=== PATIENT | female | born 1965 | race Caucasian/White ===

== ENCOUNTER 2017-02-02 08:13 | Day surgery (SDC) | payer BC ==
[~2017-02-02 08:13] MED LIST: Lactated Ringers 1,000 ML IV SCH; Lidocaine 2% 5 ML SDV ONE; Midazolam 1 MG/ML 2 ML SDV ONE; Propofol 200 MG/20 ML SDV ONE; Sodium Chloride 0.9% 10 ML Syringe FLUSH PRN; Sodium Chloride 0.9% 2.5 ML Syringe FLUSH PRN; fentaNYL 100 MCG/2 ML SDV ONE
--- NOTE | 2017-02-02 08:43 | PCM.PREANE ---
Preanesthetic Assessment - Anesthesia/Transfusion/Family Hx Anesthesia History: No Prior Anesthesia Transfusion History: No Prior Transfusion(s) - Physical Assessment O2 Sat by Pulse Oximetry: 98 Respiratory Rate: 15 Vital Signs: Last Vital Signs Temp 36.6 C 02/02/17 08:33 Pulse 56 L 02/02/17 08:33 Resp 15 02/02/17 08:33 BP 125/70 02/02/17 08:33 Pulse Ox 98 02/02/17 08:33 Height: 1.7 m Weight: 100.244 kg - Allergies Allergies/Adverse Reactions: Allergies Allergy/AdvReac Type Severity Reaction Status Date / Time acetaminophen Allergy Nausea and Verified 01/30/17 14:14 [From Darvocet-N] Vomiting propoxyphene Allergy Nausea and Verified 01/30/17 14:14 [From Darvocet-N] Vomiting PreAnesthesia Questionnaire Respiratory History: Reports: Sleep apnea Other Respiratory History: uses CPAP Gastrointestinal History: Reports: Irritable bowel syndrome, Other (see below) ( h/o GERD) [employer] History: Reports: Neurological History: Reports: Concussion Other Neuro History: hx skull fx Psychiatric History: Reports: Other (see below) (h/o anxiety/depression) Endocrine/Metabolic History: Reports: Obesity/BMI 30+ Dermatologic History: Reports: Eczema - Past Surgical History Head Surgeries/Procedures: Reports: None - SUBSTANCE USE Smoking Status *Q: Never Smoker Recreational Drug Use History: No - HOME MEDS Home Medications: Home Meds . [No Known Home Meds] 01/30/17 [History] - CURRENT (IN HOUSE) MEDS Current Meds: Current Medications Lactated Ringer's (Ringers, Lactated) 1,000 mls @ 125 mls/hr IV ASDIRECTED HORACIO Sodium Chloride (Saline Flush) 10 ml FLUSH ASDIRECTED PRN PRN Reason: Keep Vein Open Sodium Chloride (Saline Flush) 2.5 ml FLUSH ASDIRECTED PRN PRN Reason: Keep Vein Open Discontinued Medications Fentanyl (Sublimaze) Confirm Administered Dose 100 mcg .ROUTE .STK-MED ONE Stop: 02/02/17 08:06 Lidocaine (Xylocaine-Mpf 2%) Confirm Administered Dose 5 ml .ROUTE .STK-MED ONE Stop: 02/02/17 08:05 Midazolam HCl (Versed 1 Mg/Ml) Confirm Administered Dose 2 mg .ROUTE .STK-MED ONE Stop: 02/02/17 08:06 Propofol (Diprivan 20 Ml) Confirm Administered Dose 200 mg .ROUTE .STK-MED ONE Stop: 02/02/17 08:06 Preanesthetic Assessment - ANESTHESIA/TRANSFUSION/FAMILY HX Anesthesia/Transfusion History: No Prior Anesthesia Family History of Anesthesia Reaction: No Other Intubation History Comment: no history of surgeries - REVIEW OF SYSTEMS Constitutional: Reports: no symptoms PRESENTATION MANAGER: Reports: no symptoms Respiratory: Reports: no symptoms Cardiovascular: Reports: no symptoms Other: Reports: None - PHYSICAL ASSESSMENT O2 Sat by Pulse Oximetry: 98 RR: 15 Vital Signs: Last Vital Signs Temp 36.6 C 02/02/17 08:33 Pulse 56 L 02/02/17 08:33 Resp 15 02/02/17 08:33 BP 125/70 02/02/17 08:33 Pulse Ox 98 02/02/17 08:33 Height: 1.7 m Weight: 100.244 kg ASA Class: 2 Mental Status: Alert & Oriented x3 Airway Class: Mallampati = 2 Dentition: Reports: Normal Dentition Thyro-Mental Finger Breadths: 2 Mouth Opening Finger Breadths: 3 ROM/Head Extension: Full Respiratory Status: lungs clear to auscultation bilaterally Cardiovascular Status: regular rate & rhythm, normal S1, S2, no murmur, blood pressure WNL - ALLERGIES Allergies/Adverse Reactions: Allergies Allergy/AdvReac Type Severity Reaction Status Date / Time acetaminophen Allergy Nausea and Verified 01/30/17 14:14 [From Darvocet-N] Vomiting propoxyphene Allergy Nausea and Verified 01/30/17 14:14 [From Darvocet-N] Vomiting - BLOOD Blood Available: No - ANESTHESIA PLAN Preop Beta Armani: No Anesthesia Type Planned: MAC - ACKNOWLEDGEMENTS Pt an Appropriate Candidate for the Planned Anesthesia: Yes Alternatives and Risks of Anesthesia Discussed w Pt/Guardian: Yes Pt/Guardian Understands and Agrees with Anesthesia Plan: Yes
--- NOTE | 2017-02-02 09:59 | PCM.OPNOTE ---
- General Post-Op/Procedure Note Date of Surgery/Procedure: 02/02/17 Operative Procedure(s): Colonoscopy Findings: Normal colon Pre Op Diagnosis: Screening colonoscopy Post-Op Diagnosis: normal colon Anesthesia Technique: MAC Primary Surgeon: Cindy Darnell Condition: Good
--- NOTE | 2017-02-02 10:04 | PCM.POSTAN ---
POST ANESTHESIA ASSESSMENT - MENTAL STATUS Mental Status: alert, oriented - RESPIRATORY Respiratory Status: respiratory rate WNL, airway patent, O2 saturation stable - CARDIOVASCULAR CV Status: pulse rate WNL, blood pressure stable - GASTROINTESTINAL GI Status: no symptoms - POST OP HYDRATION Hydration Status: adequate & stable - OBSERVATIONS Free Text/Narrative:: no anesthesia problems
[2017-02-02 10:40] VITALS: BP 122/80
--- NOTE | 2017-02-02 15:36 | OR ---
SURGEON: FRANKLYN FUENTES MD DATE OF PROCEDURE: 02/02/2017 PREOPERATIVE DIAGNOSIS: Screening colonoscopy. POSTOPERATIVE DIAGNOSIS: Screening colonoscopy. PROCEDURE PERFORMED: Screening colonoscopy. INSTRUMENT USED: Olympus colonoscope. ANESTHESIA: MAC. EXTENT OF EXAM: To the cecum. PREPARATION: Good. LIMITATIONS: None. INDICATIONS FOR EXAMINATION: The patient is a 51-year-old female, who presents for her first screening colonoscopy. The patient and I discussed the procedure as well as expected perioperative course. We discussed the risks, including bleeding, infection, or damage to surrounding structures. The patient verbalized understanding and wished to proceed. PROCEDURE IN DETAIL: The patient was brought into the endoscopy suite and placed in left lateral decubitus position. The patient has had a discussion with Anesthesia and myself about having light sedation through the procedure. The patient's anesthesiologist and I agreed that would be possible, but should the patient experience any discomfort during the procedure that we would then provide monitored anesthesia care. The patient verbalized understanding. A time-out was completed verifying the patient's name, age, date of , allergies, and procedure to be performed. The patient had continuous oxygen provided via face mask throughout the procedure. A digital rectal exam was performed. This examination was within normal limits. A well lubricated colonoscope was then inserted into the rectum and advanced under direct visualization. At the level of the splenic flexure, the patient started having discomfort and agreed to undergo monitored anesthesia care. After adequate sedation was achieved, we then proceeded with the remainder of the exam. The scope was then passed through the transverse colon down the ascending colon, into the cecum. The cecum was identified by both visual and anatomic landmarks. A photograph was taken of the cecal cap. I was unable to retroflex the scope within the cecum due to looping of the scope more proximally. The scope was then fully withdrawn while examining the color, texture, anatomy, and integrity of the mucosa from the cecum to the anal canal. The findings were consistent with normal colonic mucosa. The scope was then brought into the rectum and retroflexed to allow visualization of the anal canal opening. This appeared normal. The scope was then straightened out and removed from the patient. The cecum to anus time was 7 minutes. The patient was then transferred to the recovery room in stable condition. ENDOSCOPIC DIAGNOSIS: Normal colonoscopy. RECOMMENDATIONS: Follow up in clinic in 10 years. TAMELA WEISS /[id number]
== END 2017-02-02 10:35 | disposition home or self-care (01) ==
LOC: MW.SDS 08:13
PROVIDERS: ATTEND Surgery
PROC: 0DJD8ZZ Inspection of Lower Intestinal Tract, Via Natural or Artificial Opening Endoscopic (ICD-10-PCS; principal; 2017-02-02)
DX: Z12.11 Encounter for screening for malignant neoplasm of colon (principal); G47.30 Sleep apnea, unspecified; F17.210 Nicotine dependence, cigarettes, uncomplicated; K58.9 Irritable bowel syndrome, unspecified; E66.9 Obesity, unspecified; Z88.6 Allergy status to analgesic agent; Z88.8 Allergy status to other drugs, medicaments and biological substances; Z68.34 Body mass index [BMI] 34.0-34.9, adult
CPT/HCPCS: 45378; 81025; J2250; J3010; J7120; J2704